=== PATIENT | male | born 1935 | race Caucasian/White ===

== ENCOUNTER 2016-09-09 07:38 | Day surgery (SDC) | payer OTHER ==
[~2016-09-09 07:38] MED LIST: ALLOPURINOL100 MG PO; AMLODIPINE BESYL5 MG PO; LISINOPRIL40 MG PO; METFORMIN HCL500 MG PO; OMEPRAZOLE20 M1 PO; PRAVASTATIN SOD40 MG PO
[2016-09-09] MEDS ORDERED: NORCO1 TA1 PO (10:30)
--- NOTE | 2016-09-09 10:31 | Provider's Discharge Care Plan ---
Problem, Goal, Plan Problem List 1. Inguinal hernia
--- NOTE | 2016-09-09 10:31 | Provider's Discharge Care Plan ---
Problem, Goal, Plan Problem List 1. Inguinal hernia
--- NOTE | 2016-09-09 11:00 | OPERATIVE REPORT ---
DATE OF SURGERY: 09/09/2016 SURGEON: Carlitos Lopez MD PREOPERATIVE DIAGNOSIS: 1. Right inguinal hernia POSTOPERATIVE DIAGNOSIS: 1. Right inguinal hernia PROCEDURE PERFORMED: 1. Right inguinal herniorrhaphy ANESTHESIA: Local and total IV general. INDICATIONS: The patient is an 81-year-old man with a right inguinal hernia which has been increasing in size. SURGICAL TECHNIQUE: The patient was taken to the operating room, where IV sedation was administered and the patient prepped and draped in the usual sterile fashion. IV antibiotics were given. A local anesthetic of 0.5% Marcaine and 1% Xylocaine was infiltrated as an ilioinguinal nerve block and also in the operative site. An incision was made transversely and carried down through skin and subcutaneous tissue with sharp and electrocautery dissection. The external oblique was split along its fibers and the underlying ilioinguinal nerve identified and preserved. The cord was found to contain a large, thick-walled indirect inguinal hernia associated with a lipoma. This was all dissected away from the cord structures, back to the internal ring where it inverted through the internal ring. The transversalis fascia was imbricated using 2 running rows of 2-0 polypropylene sutures, narrowing the internal ring to clamp tip snugness but not strangulating the cord structures. The nerve was kept alongside the cord. A piece of woven polypropylene mesh was tailored to suit the inguinal floor. It was split laterally and sutured along its lower edge to the inguinal ligament with running 3-0 Prolene. The upper medial portion was sewn to the anterior internal oblique. The slit was pulled up around the cord and a single stitch placed laterally. The wound was irrigated. The wound was closed using running 3-0 Vicryl for external oblique and running subcuticular 4-0 Vicryl suture for skin. Steri-Strips and dressings were applied and the patient left in good condition. No intraoperative complications were encountered.
== END 2016-09-09 13:15 | disposition home or self-care (01) ==
LOC: OR SRH 07:38 → SCU SRH 07:39
PROVIDERS: Surgery
PROC: 0YU50JZ Supplement Right Inguinal Region with Synthetic Substitute, Open Approach (ICD-10-PCS; principal; 2016-09-09 09:00)
DX: K40.90 Unilateral inguinal hernia, without obstruction or gangrene, not specified as recurrent (principal); E11.9 Type 2 diabetes mellitus without complications; Z79.84 Long term (current) use of oral hypoglycemic drugs; I10 Essential (primary) hypertension
CPT/HCPCS: 29229; 29240; 50004; 60001; 80866; 82572; 84038; 84519; 87058